=== PATIENT | female | born 1985 | race Caucasian/White ===

== ENCOUNTER 2016-09-22 17:38 | Inpatient (IN) | payer BC ==
[2016-09-22] VITALS (11 sets, daily range): BP systolic 128–131; BP diastolic 68–84; PULSE 82–98; RESP 5–18; TEMP 98.9–99.4
[~2016-09-22] VITALS: Ht 167.6 cm; Wt 83.9 kg
--- NOTE | 2016-09-22 18:23 | PD ---
HPI Chief Complaint Rupture membranes at 3 PM today Date Seen: Sep 22, 2016 Time Seen: 18:18 Travel History International Travel<30 Days: No Contact w/Intl Traveler<30Days: No Known Affected Area: No History of Present Illness HPI 30-year-old who is at 38 weeks and 5 days complains of rupture of membranes with clear fluid per vagina at 3 PM today. Initially she noticed no contractions but in the past hour she is noticed that contractions are coming every 5-10 minutes. She denies any complications, and her last appointment was 1 week ago and her cervix was 2 cm at that time. She is group B strep negative Para: 0 : 1 History Past Medical History Medical History: Denies Significant Hx Past Surgical History Surgical History: No Previous Surgery Family History Family History: Negative Social History Alcohol Use: No Tobacco Use: No Substance Abuse: No Review of Systems Except as stated in HPI: all other systems reviewed are Neg Physical Exam Narrative GENERAL: Well-nourished, well-developed patient. SKIN: Warm and dry. HEAD: Normocephalic and atraumatic. EYES: No scleral icterus. No injection or drainage. ENT: No nasal drainage noted. Mucous membranes pink. Airway patent. NECK: Supple, trachea midline. No JVD. CARDIOVASCULAR: Regular rate and rhythm without murmurs, gallops, or rubs. RESPIRATORY: Breath sounds equal bilaterally. No accessory muscle use. BREASTS: Bilateral exam showed no masses , no retractions, no nipple discharge. ABDOMEN/GI: Abdomen soft, non-tender, bowel sounds present, no rebound, no guarding Gravid to [38-] weeks size Fundal Height: [-] GENITOURINARY: External Genitalia: intact and normal in appearance BUS glands: [-Normal] Cervix: [Anterior-] Dilatation: [-2-3] Effacement: [-80%] Station: [--2] Presentation: [-Vertex] Membranes: ruptured, clear fluid on exam Uterine Contractions: [Irregular every 10 minutes-] FHT's: Category: [-1] Baseline: [140-] Reactive: [Moderate-] Variability: [-Moderate] Decels: [Absent-] EXTREMITIES: No cyanosis or edema. BACK: Nontender without obvious deformity. No CVA tenderness. NEUROLOGICAL: Awake and alert. Motor and sensory grossly within normal limits. Five out of 5 muscle strength in all muscle groups. Normal speech. Data Data Vital Signs Reviewed: Yes MDM Medical Record Reviewed: Yes Plan 30-year-old at 38-39 weeks gestation with rupture of membranes at 3 PM Group B strep negative Dr. Lutz was notified Diagnosis Diagnosis: Primary Impression: 38 weeks gestation of Additional Impression: Rupture of membranes with clear amniotic fluid Shari Arzate MD Sep 22, 2016 18:23
[2016-09-22] MEDS ORDERED: LACTATED RINGER'S 1000 ML INJ 1,000 ML IV PRN (18:24)
[2016-09-22] MEDS ORDERED: CITRIC ACID-SODIUM CITRATE LIQ 30 ML UDC PO SCH (18:30)
[2016-09-22] MEDS ORDERED: MINERAL OIL 10 ML VIAL TOPICAL PRN (18:30)
[2016-09-22] MEDS ORDERED: SODIUM CHLORID 0.9% 500 ML INJ 500 ML IV PRN (18:30)
[2016-09-22] MEDS ORDERED: LIDOCAINE HCL 1% 50 ML VIAL INFIL PRN (18:30)
[2016-09-22] MEDS ORDERED: OXYTOCIN 30 UNITS-500ML PREMIX 500 ML IV ONE (18:30)
[2016-09-22] MEDS ORDERED: LIDOCAINE HCL 1% 50 ML VIAL I-DERMAL PRN (18:30)
[2016-09-22] MEDS ORDERED: SODIUM CHLOR 0.9% 1000 ML INJ 1,000 ML IV PRN (18:44)
[2016-09-22 19:46] LABS: AUTOMATED NEUTROPHIL # 7.3 TH/MM3 (1.8-7.7); BASOPHIL % 0.5 % (0.0-2.0); EOSINOPHIL % 0.3 % (0.0-4.0); HEMATOCRIT 36.6 % (35.0-46.0); HEMO FLAGS DIFF FINAL; LYMPH % 16.7 % (9.0-44.0); LYMPHOCYTE # 1.6 TH/MM3 (1.0-4.8); MEAN CELL VOLUME 83.7 FL (80.0-100.0); MEAN CORPUSCULAR HEMOGLOBIN 28.2 PG (27.0-34.0); MEAN CORPUSCULAR HGB CONC 33.7 % (32.0-36.0); MONO % 7.5 % (0.0-8.0); PLATELET COUNT 152 TH/MM3 (150-450); RED BLOOD COUNT 4.37 MIL/MM3 (4.00-5.30); RED CELL DISTRIBUTION WIDTH 14.8 % (11.6-17.2); WHITE BLOOD COUNT 9.7 TH/MM3 (4.0-11.0)
[2016-09-22 19:51] LABS: BACTERIA, URINE OCC /hpf; BLOOD, URINE MOD (NEG); COMMENT (UR) CULT NOT INDICATED; CULTURE IF INDICATED CULT NOT INDICATED; GLUCOSE,URINE NEG (NEG); KETONE, URINE NEG (NEG); MUCUS URINE FEW /lpf (OCC); NITRITE,URINE NEG (NEG); PH, URINE 6.5 (5.0-8.5); SQUAMOUS EPITHELIAL CELL URINE 4 /hpf (0-5); URINE COLOR YELLOW (YELLW/STRAW)
[2016-09-23] VITALS (125 sets, daily range): BP systolic 96–159; BP diastolic 48–91; PULSE 46–119; RESP 17–18; TEMP 97.8–98.9
[2016-09-23] MEDS ORDERED: OXYTOCIN 30 UNITS/NS 500ML PREMIX IV SCH
[2016-09-23] MEDS ORDERED: fentaNYL 2MCG-BUPIV 0.125% INJ 100 ML ONE ×2 (00:37→08:29)
[2016-09-23] MEDS: LACTATED RINGER'S 1000 ML INJ 1,000 ML IV SCH ×2 (00:50→02:27)
[2016-09-23] MEDS ORDERED: OXYTOCIN 10 UNIT/ML AMP XX PRN (11:15)
[2016-09-23] MEDS: SODIUM CHLORIDE 0.9% FLUSH 10 ML FLUSH IV FLUSH SCH (11:15)
[2016-09-23] MEDS ORDERED: ALUMINUM/MAGNESIUM/SIMETH 30 ML CUP PO PRN (11:15)
[2016-09-23] MEDS ORDERED: ONDANSETRON ODT 4 MG TAB PO PRN (11:15)
[2016-09-23] MEDS ORDERED: BENZOCAINE 20% TOPICAL SPRAY 60 ML CAN TOPICAL PRN (11:15)
[2016-09-23] MEDS ORDERED: ZOLPIDEM TARTRATE 5 MG TAB PO PRN (11:15)
[2016-09-23] MEDS ORDERED: SODIUM CHLORIDE 0.9% FLUSH 10 ML FLUSH IV FLUSH PRN (11:15)
[2016-09-23] MEDS ORDERED: WITCH HAZEL 50%/GLYCERIN 12.5% 40 PAD JAR TOPICAL PRN (11:15)
--- NOTE | 2016-09-23 11:18 | PD.OB.DELI ---
Anesthesia: Epidural Episiotomy: None Vaginal Delivery: Normal Presentation: Occiput anterior, Compound (left arm/hand) Nuchal Cord: x1 Delayed cord clamping (45 sec): Yes Infant: Male One Minute : 8 Five Minute : 9 Weight: 7/11 Placenta: Spontaneous delivery Laceration: Vaginal laceration (left/right labial lac.), Perineal laceration, 2 deg Repair: Vicryl interrupted, Vicryl running (multilayered closure,) Corey Bazzi MD Sep 23, 2016 11:18
[2016-09-23] MEDS: IBUPROFEN 600 MG TAB PO PRN ×3 (12:31→22:08)
[2016-09-23] MEDS: oxyCODONE/ACETAMINOPHEN 5 MG/325 MG TAB PO PRN ×3 (13:17→22:08)
[2016-09-23] MEDS: DOCUSATE SODIUM 50 MG/SENNA 8.6 MG TAB PO PRN (15:27)
[2016-09-23] MEDS ORDERED: MEASLES, MUMPS, RUBELLA VACCINE 0.5 ML VIAL SQ ONE (16:00)
[2016-09-23] MEDS ORDERED: DIPHTH/TETANUS/ACEL PERTUSSIS (BOOSTER) 0.5 ML VIAL/PFS IM ONE (16:00)
[2016-09-24] MEDS: oxyCODONE/ACETAMINOPHEN 5 MG/325 MG TAB PO PRN ×2 (02:34→10:41)
[2016-09-24] MEDS: IBUPROFEN 600 MG TAB PO PRN ×2 (06:26→15:19)
--- NOTE | 2016-09-24 08:55 | HHI.OB ---
Subjective Post Day: 1 Remarks stressing with nursing otherwise doing ok Objective Vitals/I&O Vital Signs Date Time Temp Pulse Resp B/P Pulse Ox O2 Delivery O2 Flow Rate FiO2 09/23/16 20:00 98.2 70 18 115/72 718/17 15:10 94 18 128/69 718/17 15:10 98.0 18/17 14:26 81 128/69 18/17 14:25 18 18/17 13:01 18 18/17 13:01 91 125/81 18/17 12:34 18 18/17 12:30 97 124/76 18/17 12:20 18 18/17 12:15 103 135/79 18/17 12:05 17 09/23/16 12:00 109 124/77 18/17 11:50 18 18/17 11:45 95 96/65 18/17 11:33 98.2 18 18/17 11:31 91 117/74 18/17 11:20 18 18/17 11:15 95 159/72 18/17 11:00 92 124/77 18/17 10:50 100 138/68 7/18/17 10:40 46 18/17 10:30 110 18/17 10:30 104 153/71 18/17 10:25 101 18/17 10:20 94 18/17 10:15 105 18/17 10:05 96 18/17 10:00 100 18/17 09:55 80 18/17 09:50 93 18/17 09:45 107 18/17 09:40 92 18/17 09:35 104 18/17 09:30 111 18/17 09:30 108 128/72 18/17 09:28 98.9 18 718/17 09:25 110 /18/17 09:20 109 18/17 09:19 115 145/67 718/17 09:15 110 18/17 09:15 18 718/17 09:10 119 18/17 09:05 104 18/17 09:00 105 09/23/16 09:00 104 124/68 Objective Remarks GENERAL: Well-nourished, well-developed patient. CARDIOVASCULAR: Regular rate and rhythm without murmurs, gallops, or rubs. RESPIRATORY: Breath sounds equal bilaterally. No accessory muscle use. ABDOMEN/GI: Abdomen soft, non-tender. Fundus: Firm, non-tender at umbilicus. GENITOURINARY: Light to moderate bleeding. EXTREMITIES: No cyanosis or edema, non-tender, without signs of DVT. Medications and IVs Current Medications Medications (Trade) Dose Ordered Sig/Gennaro Route Start Time Stop Time Status Last Admin Lactated Ringer's 1,000 ml @ 125 mls/hr Q8H IV 09/22/16 18:24 09/23/16 02:27 Lactated Ringer's 1,000 ml @ 3,000 mls/hr Q20M PRN IV 09/22/16 18:24 (NS 1000 ml Inj) 1,000 ml @ 100 mls/hr Q10H PRN IV 09/22/16 18:44 (fentaNYL INJ) 50 mcg Q1H PRN IV PUSH 09/22/16 18:30 (fentaNYL INJ) 100 mcg Q1H PRN IV PUSH 09/22/16 18:30 Mineral Oil 10 ml 10 ml UNSCH PRN TOPICAL 09/22/16 18:30 (Pitocin 30 Units-NS 500 ml Premix) 500 ml @ 0 mls/hr TITRATE IV 09/23/16 00:00 09/23/16 03:01 (NS Flush) 2 ml BID IV FLUSH 09/23/16 11:15 (NS Flush) 2 ml UNSCH PRN IV FLUSH 09/23/16 11:15 (Tylenol) 650 mg Q4H PRN PO 09/23/16 11:15 (Motrin) 600 mg Q6H PRN PO 09/23/16 11:15 09/24/16 06:26 (Percocet 5-325 Mg) 1 tab Q4H PRN PO 09/23/16 11:15 09/24/16 02:34 (Americaine 20% Top Spr) 1 spray Q4H PRN TOPICAL 09/23/16 11:15 09/23/16 15:27 (Tucks Pads) 1 applic QID PRN TOPICAL 09/23/16 11:15 09/23/16 15:27 (Meg-Colace) 2 tab Q12H PRN PO 09/23/16 11:15 09/23/16 15:27 (Ambien) 5 mg HS PRN PO 09/23/16 11:15 (Mag-Al Plus Susp Liq) 15 ml Q8H PRN PO 09/23/16 11:15 (Zofran Odt) 4 mg Q6H PRN PO 09/23/16 11:15 Assessment/Plan Assessment and Plan circumcision in am (counseled) reviewed routine expectations home senior staff consultant today Terra Perez MD Sep 24, 2016 08:55
[2016-09-24] MEDS: SODIUM CHLORIDE 0.9% FLUSH 10 ML FLUSH IV FLUSH SCH (09:00)
[2016-09-24] MEDS: DOCUSATE SODIUM 50 MG/SENNA 8.6 MG TAB PO PRN (09:15)
[2016-09-24 10:45] VITALS: BP 116/69; PULSE 101; RESP 18; TEMP 97.6
[2016-09-24] MEDS: ACETAMINOPHEN 325 MG TAB PO PRN (15:20)
[2016-09-24 22:30] VITALS: BP 124/70; PULSE 103; RESP 18; TEMP 98.3
[2016-09-25] MEDS: IBUPROFEN 600 MG TAB PO PRN ×2 (02:41→08:50)
[2016-09-25] MEDS: ACETAMINOPHEN 325 MG TAB PO PRN ×2 (02:41→08:50)
[2016-09-25] MEDS: DOCUSATE SODIUM 50 MG/SENNA 8.6 MG TAB PO PRN (02:41)
[2016-09-25 08:08] VITALS: BP 128/80; PULSE 86; RESP 18; TEMP 97.9
--- NOTE | 2016-09-25 08:46 | HHI.OB ---
Subjective Post Day: 2 Remarks Remains mildly dysphoric nursing difficulty and baby may need to supplement perineum uncomfortable and hesitant to ambulate Objective Vitals/I&O Vital Signs Date Time Temp Pulse Resp B/P Pulse Ox O2 Delivery O2 Flow Rate FiO2 09/25/16 08:08 97.9 86 18 128/80 09/24/16 22:30 103 18 124/70 09/24/16 22:30 98.3 09/24/16 10:45 97.6 101 18 116/69 Objective Remarks GENERAL: Well-nourished, well-developed patient. CARDIOVASCULAR: Regular rate and rhythm without murmurs, gallops, or rubs. RESPIRATORY: Breath sounds equal bilaterally. No accessory muscle use. ABDOMEN/GI: Abdomen soft, non-tender. Fundus: Firm, non-tender at umbilicus. GENITOURINARY: Light to moderate bleeding. EXTREMITIES: No cyanosis or edema, non-tender, without signs of DVT. Medications and IVs Current Medications Medications (Trade) Dose Ordered Sig/Gennaro Route Start Time Stop Time Status Last Admin Lactated Ringer's 1,000 ml @ 125 mls/hr Q8H IV 09/22/16 18:24 09/23/16 02:27 Lactated Ringer's 1,000 ml @ 3,000 mls/hr Q20M PRN IV 09/22/16 18:24 (NS 1000 ml Inj) 1,000 ml @ 100 mls/hr Q10H PRN IV 09/22/16 18:44 (fentaNYL INJ) 50 mcg Q1H PRN IV PUSH 09/22/16 18:30 (fentaNYL INJ) 100 mcg Q1H PRN IV PUSH 09/22/16 18:30 Mineral Oil 10 ml 10 ml UNSCH PRN TOPICAL 09/22/16 18:30 (Pitocin 30 Units-NS 500 ml Premix) 500 ml @ 0 mls/hr TITRATE IV 09/23/16 00:00 09/23/16 03:01 (NS Flush) 2 ml BID IV FLUSH 09/23/16 11:15 (NS Flush) 2 ml UNSCH PRN IV FLUSH 09/23/16 11:15 (Tylenol) 650 mg Q4H PRN PO 09/23/16 11:15 09/25/16 02:41 (Motrin) 600 mg Q6H PRN PO 09/23/16 11:15 09/25/16 02:41 (Percocet 5-325 Mg) 1 tab Q4H PRN PO 09/23/16 11:15 09/24/16 10:41 (Americaine 20% Top Spr) 1 spray Q4H PRN TOPICAL 09/23/16 11:15 09/23/16 15:27 (Tucks Pads) 1 applic QID PRN TOPICAL 09/23/16 11:15 09/23/16 15:27 (Meg-Colace) 2 tab Q12H PRN PO 09/23/16 11:15 09/25/16 02:41 (Ambien) 5 mg HS PRN PO 09/23/16 11:15 (Mag-Al Plus Susp Liq) 15 ml Q8H PRN PO 09/23/16 11:15 (Zofran Odt) 4 mg Q6H PRN PO 09/23/16 11:15 Assessment/Plan Assessment and Plan circumcision done today discharge today needs follow up for possible PPD needs peds visit in 48 hours. Terra Perez MD Sep 25, 2016 08:46
--- NOTE | 2016-09-25 08:47 | HHI.DCPOC ---
Discharge Care Plan Report Symptoms to Your Doctor -Temperature above 100.5 degrees -Redness, of incision or excessive or foul smelling drainage -Unusual pain or calf pain -Increased vaginal bleeding -Painful or difficulty urinating -Feelings of extreme sadness or anxiety after 2 weeks Goals to Promote Your Health * To prevent worsening of your condition and complications * To maintain your health at the optimal level Directions to Meet Your Goals Take your medications as prescribed Follow your dietary instruction Follow activity as directed Ensure plenty of rest for recovery Drink fluids for hydration Keep your appointments as scheduled Take your immunizations and boosters as scheduled If your symptoms worsen call your PCP, if no PCP go to Urgent Care Center or Emergency Room Smoking is Dangerous to Your Health. Avoid second hand smoke Call the 24-hour crisis hotline for domestic abuse at Terra Perez MD Sep 25, 2016 08:47
== END 2016-09-25 11:59 | disposition home or self-care (01) | DRG 775 ==
LOC: HOBED 17:38 → H2EB 18:20 → H1EA 09-23 15:35
PROVIDERS: ADMIT Obstetrics & Gynecology; ATTEND Obstetrics & Gynecology
PROC: 10E0XZZ Delivery of Products of Conception, External Approach (ICD-10-PCS; principal; 2016-09-23)
PROC: 0KQM0ZZ Repair Perineum Muscle, Open Approach (ICD-10-PCS; 2016-09-23)
PROC: 0UQMXZZ Repair Vulva, External Approach (ICD-10-PCS; 2016-09-23)
PROC: 3E0S3CZ (ICD-10-PCS; 2016-09-23)
PROC: 00HU33Z Insertion of Infusion Device into Spinal Canal, Percutaneous Approach (ICD-10-PCS; 2016-09-23)
DX: O42.02 Full-term premature rupture of membranes, onset of labor within 24 hours of rupture (principal); O32.6XX0 Maternal care for compound presentation, not applicable or unspecified; O70.1 Second degree perineal laceration during delivery; Z37.0 Single live birth; Z3A.38 38 weeks gestation of pregnancy
CPT/HCPCS: 59025; 81001; 84112; 85025; 86900; 86901; 90715; J2590; J7120